=== PATIENT | male | born 1945 | race Caucasian/White ===

== ENCOUNTER 2016-10-09 14:30 | Emergency (ER) | payer OTHER, MEDICARE ==
[~2016-10-09] VITALS: Ht 180.3 cm; Wt 72.6 kg
--- NOTE | 2016-10-09 14:59 | ED GI/GU/ABDOMINAL COMPLAINT ---
History of Present Illness General Chief Complaint: General Adult Stated Complaint: "PIECE OF MEAT STUCK IN THROAT" Source: patient, family, old records Exam Limitations: no limitations Vital Signs & Intake/Output Vital Signs & Intake/Output Vital Signs Date Time Temp Pulse Resp B/P B/P Pulse O2 O2 Flow FiO2 Mean Ox Delivery Rate 10/09 1500 104 20 95 Room Air Room Air 10/09 1434 97.9 109 20 179/90 92 Room Air Allergies Coded Allergies: No Known Allergies (10/09/16) Triage Note: PT STATE A PIECE OF MEAT STUCK IN THROAT X 1/2 HOUR. PT VERY SHAKEY IN TRIAGE STATES D/T HIS PSYCH MEDS. PT SOUNDS JUNKY AN O2 SATS 92% Triage Nurses Notes Reviewed? yes Onset: Just prior to arrival Duration: minute(s):, constant, continues in ED Timing: recent history Quality/Severity: fullness, moderate Location: chest throat Radiation: no radiation Activities at Onset: eating Prior Abdominal Problems: none Past Sexual History: Unobtainable at this time Modifying Factors: Worsens With: eating. HPI: Prior to admission while eating pork chop he felt like it got stuck. He is unable swallow secretions. He denies fever chills nausea vomiting diarrhea chest pain shortness of breath headache dysuria rash bleeding previous episodes. Past History Travel History Traveled to [place] past 21 day No Medical History Any Pertinent Medical History? see below for history Psychiatric: SCHIZOPHRENIA Surgical History Surgical History: non-contributory Psychosocial History What is your primary language Taiwanese Tobacco Use: Never used ETOH Use: denies use Illicit Drug Use: denies illicit drug use Family History Hx Contributory? No Review of Systems Review of Systems Constitutional: Reports: no symptoms. EENTM: Reports: no symptoms. Respiratory: Reports: no symptoms. Cardiovascular: Reports: no symptoms. GI: Reports: see HPI. Genitourinary: Reports: no symptoms. Musculoskeletal: Reports: no symptoms. Skin: Reports: no symptoms. Neurological/Psychological: Reports: no symptoms. Hematologic/Endocrine: Reports: no symptoms. Immunologic/Allergic: Reports: no symptoms. All Other Systems: Reviewed and Negative Physical Exam Physical Exam General Appearance: well developed/nourished, alert, awake, anxious, moderate distress, thin Head: atraumatic, normal appearance Eyes: Bilateral: normal appearance, PERRL, EOMI, normal inspection. Ears, Nose, Throat, Mouth: hearing grossly normal, moist mucous membrane Neck: normal inspection, supple, full range of motion, normal alignment, no midline tenderness Respiratory: normal breath sounds, chest non-tender, no respiratory distress, quiet respiration, lungs clear Cardiovascular: regular rate/rhythm, normal peripheral pulses, norml femoral pulses equa Peripheral Pulses: 4+ carotid (R), 4+ carotid (L) Gastrointestinal: normal bowel sounds, soft, non-tender, no organomegaly Male Genitals: normal genitalia Back: normal inspection, normal range of motion Extremities: normal range of motion, no ligament instability Neurologic/Psych: no motor/sensory deficits, awake, alert, oriented x 3, normal gait, 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 No Severe Sepsis Present: No Septic Shock Present: No Progress Differential Diagnosis: esophageal foreign body Plan of Care: Orders Procedure Date/time Status COMPREHENSIVE METABOLIC PANEL 10/09 1444 Complete CBC WITHOUT DIFFERENTIAL 10/09 1444 Complete Laboratory Tests 10/09/16 1458: Anion Gap 10, Estimated GFR 55 L, BUN/Creatinine Ratio 14.6, Glucose 120 H, Calcium 8.9, Total Bilirubin 0.6, AST 24, ALT 39, Alkaline Phosphatase 56, Total Protein 6.7, Albumin 4.1, Globulin 2.6, Albumin/Globulin Ratio 1.6, CBC w Diff NO MAN DIFF REQ, RBC 4.11 L, MCV 89.7, MCH 30.7, RDW 14.1, MPV 7.8, Gran % 68.7 , Lymphocytes % 21.0, Monocytes % 8.7, Eosinophils % 1.4, Basophils % 0.2, Absolute Granulocytes 6.4, Absolute Lymphocytes 2.0, Absolute Monocytes 0.8 H, Absolute Eosinophils 0.1, Absolute Basophils 0, PUBS MCHC 34.3 Diagnostic Imaging: Viewed by Me: Radiology Read. Discussed w/RAD: Radiology Read. Radiology Impression: no acute abnormality CXR Impression: no acute abnormality Initial ED EKG: none Departure Departure Time of Disposition: 1609 Disposition: HOME OR SELF CARE Condition: Stable Clinical Impression Primary Impression: Impacted esophageal foreign body Qualifiers: Encounter type: initial encounter Qualified Code: T18.108A - Unspecified foreign body in esophagus causing other injury, initial encounter Referrals: SHERRI EMERSON MD Call for GI follow-up UNKNOWN (PCP/Family) Additional Instructions: Soft diet one week Departure Forms: Customer Survey General Discharge Information
[2016-10-09 15:03] LABS: ABSOLUTE BASOPHIL COUNT 0 /CUMM (0.0-0.2); ABSOLUTE EOSINOPHIL COUNT 0.1 /CUMM (0.0-0.7); ABSOLUTE GRANULOCYTE CT 6.4 /CUMM (1.4-6.5); ABSOLUTE MONOCYTE COUNT 0.8 /CUMM (0.10-0.60); BASOPHIL % 0.2 % (0.0-2.0); EOSINOPHIL % 1.4 % (0-5); GRANULOCYTE % 68.7 % (42.2-75.2); HEMATOCRIT 36.9 % (42-52); MEAN CORPUSCULAR HGB 30.7 PG (27.0-31.0); MEAN CORPUSCULAR HGB CONC 34.3 G/DL (33.0-37.0); MEAN CORPUSCULAR VOLUME 89.7 FL (80.0-94.0); MEAN PLATELET VOLUME 7.8 FL (7.4-10.4); PLATELET COUNT 275 /CUMM (130-400); RBC DISTRIBUTION WIDTH 14.1 % (11.5-14.5); RED BLOOD CELL CT 4.11 /CUMM (4.70-6.10); WHITE BLOOD CELL COUNT 9.3 /CUMM (4.8-10.8)
--- NOTE | 2016-10-09 15:37 | RADIOLOGY REPORT ---
EXAMINATION: XR SOFT TISSUE NECK CLINICAL INDICATION: Pork chop stuck. Esophageal foreign body. COMPARISON: None TECHNIQUE: 2 views of the soft tissue neck were obtained. FINDINGS: Soft tissue films of the neck demonstrate a normal larynx, pharynx and upper trachea. No soft tissue swelling or opaque foreign body is demonstrated. Multilevel degenerative changes of the visualized portion of the cervical spine. The epiglottis is unremarkable. The lung apices are clear. IMPRESSION: No radiopaque foreign body.
--- NOTE | 2016-10-09 15:37 | RADIOLOGY REPORT ---
EXAMINATION: XR CHEST CLINICAL INFORMATION: Pork chop stuck. Esophageal foreign body. COMPARISON: None TECHNIQUE: 2 views of the chest were obtained. FINDINGS: The lungs are well expanded with mild elevation of the left hemidiaphragm. No consolidation, edema, or effusion. No pneumothorax. The cardiomediastinal silhouette is normal in size with a mildly tortuous aorta. No radiopaque foreign body is seen. Degenerative changes of the spine. IMPRESSION: No radiopaque foreign body. Clear lungs.
[2016-10-09 16:21] VITALS: BP 158/87
== END 2016-10-09 16:21 ==
LOC: ERH 14:30
PROVIDERS: Emergency Medicine
DX: T18.108A Unspecified foreign body in esophagus causing other injury, initial encounter (principal)
CPT/HCPCS: 70360; 96374; 96375; J1610; J2765